=== PATIENT | female | born 2005 | race Caucasian/White ===

== ENCOUNTER 2025-02-05 07:47 | Inpatient (IN) | payer OTHER ==
[~2025-02-05] VITALS: Ht 172.7 cm; Wt 71.0 kg
[2025-02-05 08:22] LABS: PLATELET COUNT (AUTO) 307 K/uL (150-450); RED BLOOD CELL COUNT(AUTO) 4.47 MIL/uL (4.00-5.20); RED CELL DISTRIBUTION WIDTH 13.5 % (11.5-14.5); WHITE BLOOD COUNT (AUTO) 9.4 K/uL (4.5-11.0)
[2025-02-05 08:24] LABS: COVID AG,FIA SOURCE NASAL SWAB
[2025-02-05 08:29] LABS: CREATININE 1.25 mg/dL (0.60-1.30); GLUCOSE,RANDOM 187.0 mg/dL (70-110); SODIUM SERUM 141.0 mmol/L (136-145); UREA NITROGEN, BLOOD 17.0 mg/dL (7-18)
[2025-02-05 08:30] LABS: CALCIUM, TOTAL 8.8 mg/dL (8.8-10.5); GLOMERULAR FILTR. RATE CALC 55.0 mL/min (>60)
[2025-02-05 08:41] LABS: ALCOHOL, BLOOD (SERUM) < 3 mg/dL (0-10)
[2025-02-05 08:50] LABS: SARS-COV2 (COVID) ANTIGEN,FIA Negative (Negative)
[2025-02-05] MEDS: SODIUM CHLORIDE 0.9% 1,000 ML IV ONE (08:50)
[2025-02-05] MEDS: POTASSIUM CHLORIDE 40 MEQ in SODIUM CHLORIDE 0.9% 1,000 ML IV ONE (09:19)
[2025-02-05] MEDS ORDERED: ACETAMINOPHEN 325 MG TABLET PO PRN (16:15)
[2025-02-05] MEDS ORDERED: MAGNESIUM HYDROXIDE SUSPENSION 30 ML UDCUP PO PRN (16:15)
[2025-02-05] MEDS ORDERED: BISACODYL 10 MG RECTAL RECTAL SUPPOSITORY PR PRN (16:15)
[2025-02-05] MEDS ORDERED: MORPHINE SULFATE 2 MG/ML SYRINGE IVP PRN (16:15)
[2025-02-05] MEDS ORDERED: ZOLPIDEM TARTRATE 5 MG TABLET PO PRN (16:15)
[2025-02-05] MEDS ORDERED: IPRATROPIUM BROMIDE 0.5 MG/2.5 ML NEB SOLUTION NEB PRN (16:15)
[2025-02-05] MEDS ORDERED: ALBUTEROL SULFATE 2.5 MG/0.5 ML NEB SOLUTION NEB PRN (16:15)
[2025-02-05 17:38] VITALS: BP 106/66; PULSE 63; RESP 18; TEMP 98; O2SAT 97
[2025-02-05] MEDS: ONDANSETRON HCL 4 MG/2 ML VIAL IVP PRN (18:36)
[2025-02-05 22:40] VITALS: BP 116/76; PULSE 62; RESP 18; TEMP 98.5; O2SAT 98
[2025-02-06] MEDS: HEPARIN SODIUM,PORCINE 5,000 UNITS/ML VIAL SQ SCH
[2025-02-06] MEDS: HYDROCODONE/ACETAMINOPHEN 5-325 MG TABLET PO PRN (05:00)
[2025-02-06 05:21] VITALS: BP 99/76; PULSE 65; RESP 17; TEMP 97.7; O2SAT 98
[2025-02-06 06:39] LABS: PLATELET COUNT (AUTO) 279 K/uL (150-450); RED BLOOD CELL COUNT(AUTO) 3.91 MIL/uL (4.00-5.20); RED CELL DISTRIBUTION WIDTH 13.4 % (11.5-14.5); WHITE BLOOD COUNT (AUTO) 10.8 K/uL (4.5-11.0)
[2025-02-06 07:18] VITALS: BP 110/79; PULSE 68; RESP 18; TEMP 97.9; O2SAT 98
[2025-02-06 07:20] LABS: ASPARTATE AMINOTRANSFERASE 16 U/L (15-37); CALCIUM, TOTAL 8.8 mg/dL (8.8-10.5); CREATININE 0.87 mg/dL (0.60-1.30); GLOMERULAR FILTR. RATE CALC > 60 mL/min (>60); GLUCOSE,RANDOM 69 mg/dL (70-110); SODIUM SERUM 143 mmol/L (136-145); TOTAL PROTEIN, SERUM 6.6 g/dL (6.4-8.2); UREA NITROGEN, BLOOD 14 mg/dL (7-18)
[2025-02-06] MEDS: PANTOPRAZOLE SODIUM 40 MG DR TABLET PO SCH (08:57)
[2025-02-06 12:42] VITALS: BP 119/73; PULSE 64; RESP 18; TEMP 97.7; O2SAT 100
[2025-02-06] MEDS ORDERED: FLUO-341 PO (13:36)
[2025-02-06] MEDS ORDERED: LAMO250T2 PO (13:36)
[2025-02-06] MEDS ORDERED: GABA-1181 PO (13:36)
[2025-02-06] MEDS ORDERED: PARO-149 PO (13:37)
[2025-02-06] MEDS ORDERED: DEXTROSE 50%-WATER 25 GM/50 ML SYRINGE IVP PRN (14:45)
[2025-02-06 16:07] VITALS: BP 117/62; PULSE 62; RESP 18; TEMP 98.1; O2SAT 100
[2025-02-06 17:55] LABS: GLUCOMETER DEV NAME(LOC) 5S.2D; GLUCOSE,POINT OF CARE 86 MG/DL (70-110)
[2025-02-06 20:07] VITALS: BP 98/75; PULSE 74; RESP 18; TEMP 97.9; O2SAT 98
[2025-02-06 23:37] VITALS: BP 93/66; PULSE 70; RESP 18; TEMP 97.9; O2SAT 100
[2025-02-07 04:28] VITALS: BP 99/57; PULSE 58; RESP 18; TEMP 97.7; O2SAT 99
[2025-02-07 08:30] VITALS: BP 101/67; PULSE 55; RESP 20; TEMP 98.2; O2SAT 100
[2025-02-07 12:10] VITALS: BP 105/65; PULSE 63; RESP 20; TEMP 97.7; O2SAT 100
[2025-02-07 16:03] VITALS: BP 101/55; PULSE 82; RESP 18; TEMP 98.4; O2SAT 99
== END 2025-02-07 17:00 | disposition left against medical advice (07) | DRG 817 ==
LOC: EMS 07:48 → EDH 10:03 → 5S 13:15
PROVIDERS: ADMIT Hospitalist; ATTEND Hospitalist
DX: T43.222A Poisoning by selective serotonin reuptake inhibitors, intentional self-harm, initial encounter (principal); G92.8 Other toxic encephalopathy; F31.4 Bipolar disorder, current episode depressed, severe, without psychotic features; E87.6 Hypokalemia; F17.200 Nicotine dependence, unspecified, uncomplicated; F19.90 Other psychoactive substance use, unspecified, uncomplicated; F43.12 Post-traumatic stress disorder, chronic; Z20.822 Contact with and (suspected) exposure to COVID-19; Z53.21 Procedure and treatment not carried out due to patient leaving prior to being seen by health care provider; J45.909 Unspecified asthma, uncomplicated; F43.10 Post-traumatic stress disorder, unspecified; F15.90 Other stimulant use, unspecified, uncomplicated; Y92.89 Other specified places as the place of occurrence of the external cause; Z88.0 Allergy status to penicillin; Z88.1 Allergy status to other antibiotic agents
CPT/HCPCS: 71045; 80048; 80053; 82962; 83735; 84703; 85025; 93005; 96360; 99285; G0378; G0480; G0481; J1644; J2405; J3480; J7030; 36415-L1; 36415-TC